=== PATIENT | female | born 2000 | race Caucasian/White ===

== ENCOUNTER 2022-09-04 09:58 | Emergency (ER) | payer OTHER, SELFPAY ==
[2022-09-04 09:59] VITALS: BP 136/86; PULSE 69; RESP 18; TEMP 35.9; O2SAT 100; BMI 34.9
[2022-09-04 10:27] LABS: Mucous, Urine 0 SEEN /hpf (<or=2+)
[2022-09-04] MEDS: Ketorolac 15 MG/ML Vial IV (10:27)
[2022-09-04] MEDS: 0.9% Normal Saline 1,000 ML 250 ML IV (10:27)
[2022-09-04] MEDS: Ondansetron 4 MG/2 ML Vial IV (10:27)
[2022-09-04 10:32] LABS: Color, Urine Brown (Yellow); Glucose, Dipstick Normal (Normal); Ketone-Dipstick 5 mg/dl (Negative); Leukocyte Esterase-Dipstick 100 /ul (Negative); Nitrite-Dipstick Positive (Negative); Occult Blood-Urine 250 /ul (Negative); Protein-Dipstick 100 mg/dl (Negative); Urine Bilirubin Dipstick Negative (Negative); Urine Clarity Cloudy (Clear); Urine Urobilinogen 1 mg/dl (Normal); Urine pH 6.5 (5.0 - 8.0)
--- NOTE | 2022-09-04 10:49 | EX.ED.DYSGE1 ---
HPI History of Present Illness Chief Complaint: Flank Pain Detail of Chief Complaint: Left flank pain that awoke patient from sleep this morning Informant: patient Onset/Context/Timing Onset: Today and Hours Context: Sudden Onset Timing: Continuous and Waxes and wanes Quality: Pain Location: Left flank Current Severity: Moderate Maximum Severity: Severe Worsened by: Nothing Relieved by: Nothing Associated Symptoms Associated Symptoms: No urologic Narrative Narrative: Patient is a 22-year-old woman who was diagnosed with hydronephrosis due to obstructing ureteral stone on the right a couple of months ago at outside facility. CAT scan report indicates there was a 2 mm and 4 mm stone left kidney and a 2 mm stone right kidney. This was in addition to the obstructing ureteral stone. She denies fever, chills night sweats. She did vomit prior to arrival. She also took 210 mg Toradol tablets with no improvement. Prior similar symptoms: Yes Recent Illness/Hospitalization: No PFSH PFSH Medical History Cholecystectomy planned Tonsillectomy planned Home Medications bupropion HCl 100 mg tablet 100 mg PO TID 09/04/22 [History Last Taken Unknown] buspirone 5 mg tablet 5 mg PO TID 09/04/22 [History Last Taken Unknown] cephalexin 500 mg capsule 500 mg PO Q6 #28 CAPSULES 09/04/22 [Rx Last Taken Unknown] ciprofloxacin HCl 500 mg tablet 500 mg PO BID #14 TABLETS 09/04/22 [Rx Last Taken Unknown] ondansetron 4 mg disintegrating tablet 4 mg PO Q8H PRN PRN Nausea #10 tabs 09/04/22 [Rx Last Taken Unknown] oxycodone-acetaminophen 5 mg-325 mg tablet 1 tab PO Q6H PRN PRN pain 5 days #20 TABLETS 09/04/22 [Rx Last Taken Unknown] Allergy/AdvReac Type Severity Reaction Status Date / Time amoxicillin AdvReac Mild Rash Verified 09/04/22 10:02 clonazepam AdvReac Mild Rash Verified 09/04/22 10:02 clonidine AdvReac Mild Rash Verified 09/04/22 10:02 Social History (Updated 09/04/22 @ 11:[address] Christian Pena MD) household members: family Smoking Status: Current every day smoker tobacco type: e-cigarettes ROS ROS ED Constitutional Constitutional ED: Denies chills, fever(s), subjective, sweats or weight loss Eyes Eyes: Denies blurry vision, change in vision or diplopia ENT ENT ED: Denies ear pain or rhinorrhea Cardiovascular Cardiovascular: Denies chest pain or palpitations Respiratory/Chest Respiratory/Chest: Denies cough, dyspnea or dyspnea on exertion Gastrointestinal Gastrointestinal: Reports nausea and vomiting; Denies abdominal pain or diarrhea Genitourinary Genitourinary ED: Denies dysuria, hematuria or urinary frequency Musculoskeletal Musculoskeletal: Reports other Details: Left flank ; Denies arthralgias, back pain, myalgias or neck pain Integumentary Denies rash Neurologic Neurologic: Denies headache(s), paresthesias or weakness Psychiatric Psychiatric: Denies anxiety or depression Endocrine Endocrinology: Denies cold intolerance or heat intolerance Hematologic/Lymphatic Hematologic/Lymphatic: Reports systems reviewed and no addt'l complaints, except as documented EXAM Physical Exam Const Vital Signs: 09/04/22 09:59 Temperature 96.6 F L Temperature Source Temporal Pulse Rate 69 Respiratory Rate 18 Blood Pressure 136/86 H Blood Pressure Mean 102 Pulse Ox 100 Oxygen Delivery Method Room Air Positive well nourished, well developed and obese Constitutional Narrative: Patient appears uncomfortable. General Appearance ED: well developed; Negative for pallor Nutritional Appearance: obese HEENT Reports dry mucous membranes Mouth ED: Yes dry mucous membranes Mouth: dry mucous membranes Eyes PERRL and EOMs intact bilaterally General Eye ED: Negative for pale conjunctiva or scleral icterus Neck no lymphadenopathy, supple and no JVD Resp normal respiratory effort and clear to auscultation bilaterally Cardio regular rate, regular rhythm, S1 normal heart sound, S2 normal heart sound and no murmurs GI normal to inspection, nondistended, normoactive bowel sounds, non-tender, non-distended and no masses; Negative for hepatosplenomegaly Palpation: soft Back/Spine no CVA tenderness Cervical Spine: Negative for cervical spine tenderness Thoracic Spine / Upper Back: Negative for thoracic spinal tenderness Lumbar Spine / Lower Back: Negative for lumbar spinal tenderness Extremity normal to inspection General Extremety ED: Negative for edema or tenderness General Extremity: Negative for edema Neuro oriented x3, CN's II-XII intact bilaterally and no sensory deficits noted Sensorium / Orientation: alert Psych mental status grossly normal Skin no rashes or lesions noted, no wounds and skin turgor normal General Skin Exam: Negative for jaundice or pallor MDM MDM MDM Narrative Medical decision making narrative: Records from outside facility were obtained. Patient's has a 2 and 4 mm stone that was noted left kidney from CAT scan that was performed at [facility]. Plan is IV, Zofran for nausea and vomiting, Toradol for pain. Nurse message me that patient still having pain. Morphine was ordered. Urinalysis obtained to assess for evidence of infection. Since she has normal renal function and no constitutional symptoms CBC and BMP were not obtained. In spite of 15 of Toradol IV push, 6 of morphine IV push patient still complaining significant pain. Will obtain CT of the abdomen pelvis without contrast to determine location of stone and if patient is having hydroureter or hydronephrosis. Lab Data Attestation: I reviewed the patient's lab results. Lab results narrative: Urine is brown and color and cloudy. Macro is positive for ketones, occult blood, nitrites and leukoesterase. Micro reveals greater than 100 RBCs. 0-5 WBCs and 1+ bacteria with 0-5 squamous epithelial cells. Culture was sent. Since patient has bacteria will treat with Rocephin and obtain culture. Labs: Laboratory Results - last 24 hr 09/04/22 10:11 Urine Color Brown Urine Clarity Cloudy Urine pH 6.5 Ur Specific [place] 1.030 Urine Protein 100 H Urine Glucose (UA) Normal Urine Ketones 5 H Urine Occult Blood 250 H Urine Nitrite Positive H Urine Bilirubin Negative Urine Urobilinogen 1 H Ur Leukocyte Esterase 100 H Urine RBC > 100 SEEN Urine WBC 0-5 SEEN Ur Squamous Epith Cells 0-5 SEEN Urine Bacteria 1+ Urine Mucus 0 SEEN Radiography Diagnostic Testing: Clinical Impression(s) from Imaging Studies Abdomen/Pelvis CT 09/04/22 12:51 IMPRESSION: 2.5 mm calculus in the proximal left ureter causing left proximal hydroureter and hydronephrosis. Nonobstructive bilateral intrarenal calculi. Status post cholecystectomy. 2 cm follicle in the right ovary. Electronically Signed: Gabriel Manriquez MD at 13:21 EDT , Patient was reassessed at 1500. Patient's pain has improved markedly. Plan is discharge with prescription for antiemetic, opiate analgesia. She has Toradol at home. She was referred to Dr. Juarez. Treatment and Re-Evaluation :: Since patient only had a rash with amoxicillin Rocephin is acceptable since this is a third-generation cephalosporin. Discharge Plan Triage Chief Complaint: Flank Pain ED Provider: Christian Pena Dx/Rx/DC Orders Clinical Impression: Hydronephrosis with urinary obstruction due to ureteral calculus, Asymptomatic bacteriuria, Bilateral renal stones Prescriptions: New oxycodone-acetaminophen [oxycodone-acetaminophen] 5-325 mg tablet 1 tab PO Q6H PRN PRN (Reason: pain) 5 Days Qty: 20 0RF cephalexin [cephalexin] 500 mg capsule 500 mg PO Q6 Qty: 28 0RF ondansetron [ondansetron] 4 mg tablet,disintegrating 4 mg PO Q8H PRN PRN (Reason: Nausea) Qty: 10 0RF ciprofloxacin HCl [ciprofloxacin HCl] 500 mg tablet 500 mg PO BID Qty: 14 0RF No Action bupropion HCl 100 mg tablet 100 mg PO TID Rx Instructions: administer 6 hours apart buspirone 5 mg tablet 5 mg PO TID Primary Care Provider: Lilia Portillo MD Referrals: Lilia Portillo MD [Other] Risa Juarez MD [Med Staff - Active Staff] - 3-5 Days Disposition Disposition: Home, Self Care
[2022-09-04 10:51] LABS: Bacteria 1+ /hpf (None Seen); Red Blood Cells-Urine > 100 SEEN /hpf (0-5); Squamous Epithelial Cells - UA 0-5 SEEN /hpf (5-10); White Blood Cells 0-5 SEEN /hpf (0-5)
[2022-09-04] MEDS: morphine 8 MG/ML Syringe 6 MG IV ×2 (11:33→12:56)
[2022-09-04] MEDS: Metoclopramide 10 MG/2 ML Vial 5 MG IV (12:25)
[2022-09-04] MEDS: Ceftriaxone 1 GM/50 ML BAG IV (12:29)
--- NOTE | 2022-09-04 12:51 | CT_ITS ---
STUDY: CT ABDOMEN AND PELVIS WITHOUT CONTRAST REASON FOR EXAM: Female, 22 years old. Kidney Stone- LEFT FLANK PAIN RADIATION DOSAGE (If Supplied By Facility): CTDIvol = ( 10.31 ) mGy, DLP = ( 509.89 ) mGycm TECHNIQUE: Transaxial images were obtained from the dome of the diaphragm to the symphysis pubis without oral contrast, and without intravenous contrast. Sagittal and coronal images were reconstructed. Individualized dose optimization techniques were used for this CT. COMPARISON: None. FINDINGS: The visualized lung bases are unremarkable. The visualized portions of the heart are within normal limits. Normal liver. There are surgical clips in the gallbladder fossa consistent with a prior cholecystectomy. Normal spleen. Normal pancreas. Normal bilateral adrenal glands. Tiny nonobstructive right intrarenal calculi. 3.4 mm nonobstructive calculus in the midportion of the left kidney. Mild left hydronephrosis and proximal left hydroureter due to a 2.5 mm calculus in the proximal left ureter. Normal visualized stomach. Normal small intestine. Normal colon. The appendix is visualized and appears normal. Normal abdominal aorta. Normal inferior vena cava. Normal retroperitoneum. Normal urinary bladder. 2 cm follicle in the right ovary. Normal abdominal wall. Normal osseous structures. CT/Abdomen/Pelvis without Cont IMPRESSION: 2.5 mm calculus in the proximal left ureter causing left proximal hydroureter and hydronephrosis. Nonobstructive bilateral intrarenal calculi. Status post cholecystectomy. 2 cm follicle in the right ovary. Electronically Signed: Gabriel Manriquez MD at 13:21 EDT ,
[2022-09-04 15:00] VITALS: BP 124/78; PULSE 78; RESP 18; O2SAT 100
== END 2022-09-04 15:30 | disposition home or self-care (01) ==
PROVIDERS: Emergency Provider Emergency Medicine; Visit Provider Emergency Medicine
DX: N13.2 Hydronephrosis with renal and ureteral calculous obstruction (principal); R82.71 Bacteriuria; N13.4 Hydroureter; F17.290 Nicotine dependence, other tobacco product, uncomplicated; Z79.899 Other long term (current) drug therapy
CPT/HCPCS: 74176; 81001; 87086; 87088; 96361; 96365; 96375; 96376; 99283; J7030; J7050; A4216; J2405